=== PATIENT | male | born 1970 | race African-American/Black ===

== ENCOUNTER 2018-02-25 08:07 | Outpatient (RCR) | payer OTHER | END 2018-05-12 | disposition home or self-care (01) | LOC: WSOH | DX: S93.401A Sprain of unspecified ligament of right ankle, initial encounter (principal); W18.31XA Fall on same level due to stepping on an object, initial encounter; Y93.01 Activity, walking, marching and hiking; Y92.59 Other trade areas as the place of occurrence of the external cause; Y99.0 Civilian activity done for income or pay; Z79.1 Long term (current) use of non-steroidal anti-inflammatories (NSAID) | CPT/HCPCS: 24774; L1810 ==